=== PATIENT | male | born 1970 | race Caucasian/White ===

== ENCOUNTER 2017-12-04 10:46 | Outpatient (CLI) | payer OTHER | END 2017-12-04 10:47 | disposition critical access hospital (66) | LOC: EMS 10:46 | PROVIDERS: ATTEND Surgery | DX: R55 Syncope and collapse (principal) | CPT/HCPCS: A0425; A0429 ==

== ENCOUNTER 2017-12-04 11:01 | Observation (INO) | payer OTHER ==
[2017-12-04] MEDS ORDERED: SODIUM CHLORIDE 0.9% 1,000 ML IV ONE (11:42)
[2017-12-04 11:58] LABS: BASOPHILS # (AUTO) 0.1 10^3/uL (0.0-0.1); BASOPHILS % (AUTO) 0.8 %; EOSINOPHILS # (AUTO) 0.3 10^3/uL (0.0-0.7); EOSINOPHILS % (AUTO) 3.8 %; HGB - HEMOGLOBIN 14.9 g/dL (14.0-18.0); LYMPHOCYTES # (AUTO) 1.1 10^3/uL (1.5-3.5); LYMPHOCYTES % (AUTO) 13.1 %; MEAN CORPUSCULAR HEMOGLOBIN 31.6 pg (27.0-31.0); MEAN CORPUSCULAR HGB CONC 34.7 g/dL (32.0-36.0); MEAN CORPUSCULAR VOLUME 91.2 fL (80.0-94.0); MEAN PLATELET VOLUME 10.3 fL (7.4-11.4); MONOCYTES # (AUTO) 0.6 10^3/uL (0.0-1.0); MONOCYTES % (AUTO) 6.8 %; NEUTROPHILS # (AUTO) 6.3 10^3/uL (1.5-6.6); NEUTROPHILS % (AUTO) 75.5 %; PLT - PLATELET COUNT 136 10^3/uL (130-450); RED BLOOD COUNT 4.71 10^6/uL (4.70-6.10); RED CELL DISTRIBUTION WIDTH 12.9 % (12.0-15.0); WHITE BLOOD COUNT 8.3 x10^3/uL (4.8-10.8)
--- NOTE | 2017-12-04 12:03 | XRAY Report ---
Reason: cough Procedure Date: 12/04/2017 Accession Number: [id number] / [id number] Procedure: XR - Chest 1 View X-Ray CPT Code: 24934 FULL RESULT: EXAM: CHEST RADIOGRAPHY EXAM DATE: 12/04/2017 11:56 AM. CLINICAL HISTORY: Cough. Syncope. COMPARISON: None. TECHNIQUE: Upright AP view x2. FINDINGS: Lungs/Pleura: No focal opacities evident. No pleural effusion. No pneumothorax. Mediastinum: Within exam limitations, the cardiomediastinal contour is normal. Other: Bones are grossly unremarkable. IMPRESSION: Normal chest. RADIA
[2017-12-04 12:10] LABS: ALBUMIN 4.2 g/dL (3.2-5.5); ALBUMIN/GLOBULIN RATIO 1.2 (1.0-2.2); BILIRUBIN,TOTAL 0.8 mg/dL (0.2-1.0); CALCIUM 8.7 mg/dL (8.5-10.3); CREATININE 0.9 mg/dL (0.6-1.2); TOTAL PROTEIN 7.6 g/dL (6.7-8.2)
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
[2017-12-04] MEDS ORDERED: SODIUM CHLORIDE FLUSH 0.9% 10 ML SYRINGE IVP PRN (13:08)
[2017-12-04] MEDS ORDERED: ACETAMINOPHEN 325 MG TABLET PO PRN (13:08)
[2017-12-04] MEDS: NS W/20 MEQ KCL 1,000 ML IV SCH ×2 (14:24→23:03)
[2017-12-04] MEDS ORDERED: SODIUM CHLORIDE 0.9% 1,000 ML IV SCH (17:00)
[2017-12-04] MEDS: SODIUM CHLORIDE FLUSH 0.9% 10 ML SYRINGE IVP SCH (17:12)
--- NOTE | 2017-12-04 23:09 | HISTORY & PHYSICAL EXAMINATION ---
DATE OF SERVICE: 12/04/2017 Physician: Meseret Miller MD HISTORY OF PRESENT ILLNESS: This is a 47-year-old white male with a history of gout and hypertension. The patient had been on Torsemide and Spironolactone, presumably for treatment of ankle swelling plus hypertension. According to his , this was changed 1 year ago. The patient was also on Keppra in the past, and he thinks this may have been for foot pain, as he has no history of seizures, he states. The patient awoke this morning and went to the bathroom, where he also had a cigarette. This is his usual routine. He then came back to the bed, sat down and felt cold sweats, and then had syncope. The witnessed this, as she was in the bedroom. She called 911 and her neighbor friend and also went over to the patient. He had slumped out of the seated position onto the floor, but head was still elevated. She heard "gurgling." She thought he was not breathing, however. She gave him a precordial thump because she tried to simply do something, not because of trying CPR. With this, he awoke, and they both noticed that he had both urinary incontinence and was incontinent of stool. He also vomited onto his chest. He tried to get up to clean himself, felt irritated, since the told him to stay there because at this point she was talking to the stemming machine operator. He sat there and waited, and EMS arrived. His blood pressure on the scene is not known, but the thinks that the chief of harbor patrol said that it was normal, including his pulse. He was taken by ambulance to the emergency room and is now being placed in Observation for a syncope workup. The patient had syncope one other time, which was when he was young, after fasting, and he thought that episode occurred because of being hungry and also dehydrated. He denies any chest pain, palpitations, NAJERA, any further leg edema. He is compliant with his medications. ALLERGIES HE STATES HIS ONLY ALLERGY IS LISINOPRIL, BUT THE CHART INDICATES HE ALSO IS ALLERGIC TO: 1. CLOPIDOGREL. 2. DONEPEZIL. 3. GALANTAMINE. 4. MEMANTINE. (I suspect this is a mistake and should be on another patient's allergy list). MEDICATIONS 1. Allopurinol 100 mg daily. 2. Amlodipine 5 mg daily. 3. Atenolol 50 mg daily. 4. Zantac 300 mg daily p.r.n. indigestion. SOCIAL HISTORY: He is a smoker of 1 pack a day. He just recently restarted smoking a month ago because of "stress." He had quit smoking for 5 years. He drinks no alcohol. He uses no illicit drugs. FAMILY HISTORY: Strongly positive for early heart disease in his father and all male members of the family. His father had coronary artery disease and at the age of 51. REVIEW OF SYSTEMS: The patient works as a emergency response officer. He has not been at work for 4 days. The family moved into their trailer 1 month ago. The patient was cleaning out "black mold 1 week ago", in that trailer. His has been sick with pneumonia. She needed 2 courses of antibiotics. She got sick before the black mold was being removed 1 week ago. The patient also has an upper respiratory infection but only nasal congestion and head cold. He denies any sputum production but has a dry cough. There has been no recent fever or chills, diarrhea, no seizure history, and there was no tonic-clonic movement with this episode according to the . PHYSICAL EXAMINATION GENERAL: Middle-aged white male, who is in no distress. VITAL SIGNS: Blood pressure 121/87, heart rate 64 in sinus rhythm, afebrile, room air saturation 99%. HEENT: Unremarkable. NECK: Without JVD or carotid bruits. CHEST: Clear. HEART: Sounds normal. No murmur. ABDOMEN: Soft, nontender. No organomegaly. EXTREMITIES: No clubbing, cyanosis, edema. NEUROLOGIC: Intact. LABORATORY STUDIES: Normal electrolytes. Normal BUN and creatinine. Normal liver tests. Troponins are not detectable x2. CBC is unremarkable. No urinalysis or INR was done. IMAGING Chest x-ray: No active disease. ELECTROCARDIOGRAM: Normal sinus rhythm, LVH voltage, flat T wave in aVF, biphasically inverted T wave in lead III. ECHOCARDIOGRAM: Preliminary report shows normal LV size and normal EF and essentially unremarkable Echo. IMPRESSION/DIAGNOSES 1. Syncope. 2. Abnormal EKG in a patient with risk factors of coronary artery disease including hypertension, early family history of heart disease, male gender, and unknown cholesterol status. 3. History of hypertension. 4. History of gout. 5. Family history of early coronary artery disease. PLAN 1. Place the patient in telemetry. Cycle troponins. Check magnesium. Check TSH to rule out hyper- or hypothyroidism as a cause of potential cardiac arrhythmia. Get final report on the Echo. Proceed to a stress test with nuclear imaging because of the abnormal EKG. Begin gentle hydration. Check orthostatic vital signs. 2. Deep venous thrombosis prophylaxis: SCDs. CODE STATUS: FULL CODE. ATTESTATION: The patient is expected to be discharged or transferred to another facility within 96 hours: Yes. TD: 12/04/2017 19:09 PHI
[2017-12-05] MEDS: SODIUM CHLORIDE FLUSH 0.9% 10 ML SYRINGE IVP SCH ×2 (02:37→13:33)
[2017-12-05] MEDS: NS W/20 MEQ KCL 1,000 ML IV SCH (08:24)
[2017-12-05] MEDS ORDERED: POLYETHYLENE GLYCOL 3350 17 GM PACKET PO SCH (09:00)
[2017-12-05] MEDS ORDERED: FAMOTIDINE 20 MG TABLET PO SCH (09:00)
[2017-12-05] MEDS ORDERED: ALLOPURINOL 100 MG TABLET PO SCH (09:00)
[2017-12-05] MEDS ORDERED: AMLODIPINE BESYLATE 5 MG PO ONE (13:00)
[2017-12-05] MEDS ORDERED: ATENOLOL 50 MG PO ONE (13:00)
--- NOTE | 2017-12-05 13:33 | Nuclear Medicine Report ---
Reason: Abn EKG, syncope Procedure Date: 12/05/2017 Accession Number: [id number] / [id number] Procedure: NM - Myocardial Perfusion STR/RST CPT Code: FULL RESULT: EXAM: SINGLE-ISOTOPE EXERCISE STRESS TEST. SINGLE-ISOTOPE AND ONE-DAY REST/STRESS MYOCARDIAL PERFUSION SCANS WITH TOMOGRAPHIC IMAGING, QUANTITATIVE ANALYSIS, WALL MOTION ANALYSIS AND CALCULATION OF EJECTION FRACTION. EXAM DATE: 12/05/2017 01:07 PM. CLINICAL HISTORY: Abn EKG, syncope. COMPARISON: None available. TECHNIQUE: A rest myocardial perfusion scan was done with tomography after the intravenous administration of 9.1 mCi Tc-99m sestamibi. After an appropriate delay, a treadmill exercise stress was performed according to department protocol. The patient exercised for 7 minutes and 24 seconds. The maximum heart rate was 158 bpm, which was 91% of the maximum predicted heart rate of 173 bpm. At approximately peak heart rate, 43 mCi of Tc-99m sestamibi was injected for stress myocardial perfusion scan. Motion correction was applied when appropriate. Gated tomographic images were obtained for wall motion analysis and computation of left ventricular ejection fraction. FINDINGS: Stress perfusion images demonstrate no significant convincing fixed or reversible perfusion defects. Computer analysis: Summed stress score 4 Summed rest score 4 Summed difference score 0 Wall motion analysis demonstrates no focal wall motion abnormality The left ventricular end-diastolic volume is 75 cc. The left ventricular end-systolic volume is 25 cc. The left ventricular ejection fraction is calculated to be 67%. IMPRESSION: 1. No scintigraphic findings to indicate myocardial ischemia. Negative for infarct. 2. Normal left ventricular ejection fraction of 67%. 3. Normal segmental and global wall motion. 4. Normal left ventricular cavity size, no change with stress. 5. Based on computer analysis, mildly abnormal exam with no ischemia. RADIA
[2017-12-05 13:41] VITALS: BP 141/74
--- NOTE | 2017-12-05 13:46 | Discharge Plan ---
Discharge Plan Disposition: 01 Home, Self Care Condition: Stable Diet: Low Sodium Activity Restrictions: Activity as Tolerated Additional Instructions or Follow Up instructions: Resume all your pre-hospital medications. Stay well hydrated, since the only explanation we could find for your fainting spell, was dehydration. See your PCP in a week for follow-up and for possible further evaluation of fainting. You may need a 24 hr Holter monitor or a Tilt Table Test or a Cardiology referral. If you have new or worsening symptoms, return to the ER. No Smoking: If you smoke, Please STOP! Call for help. Follow-up with: Williams Velez MD [Primary Care Provider] -
--- NOTE | 2017-12-05 16:00 | CARDIAC PROCEDURE NOTE ---
DATE OF SERVICE: 12/05/2017 Physician: Meseret Miller MD INDICATIONS: Syncope, abnormal EKG, family history of early heart disease. CORONARY RISK FACTORS: Hypertension, male gender, family history of early heart disease, overweight, unknown cholesterol status, smoker. After signing informed consent, the patient performed a [place]-protocol treadmill stress test with rest and stress nuclear imaging. The patient exercised for 7 minutes and 23 seconds. The patient achieved a peak heart rate of 158 (91% of predicted maximum heart rate for age). He achieved 9.2 METS. He had moderate shortness of breath at the peak stage, there was no chest pain. Resting heart rate 62. Peak heart rate 158 (91% PMHR). Resting blood pressure 144/80. Peak blood pressure 190/90. RESTING EKG: Normal sinus rhythm, LVH voltage, biphasic/flat T waves in leads III and aVF. EKG AT [place]: No new ST or T-wave changes. IMPRESSION 1. Fair exercise tolerance. 2. Abnormal resting EKG. 3. No ischemic EKG changes at an adequate level of stress. 4. Nuclear images reported separately. TD: 12/05/2017 15:45 MTDAndre
--- NOTE | 2017-12-06 05:17 | DISCHARGE SUMMARY ---
Physician: Meseret Miller MD DATE OF ADMISSION: 12/04/2017 DATE OF DISCHARGE: 12/05/2017 This is a 47-year-old, white male with a history of gout and hypertension. In the past, he was on spironolactone and torsemide for blood pressure control and ankle swelling, as well as Keppra for unknown reasons. Over the past year, these have been stopped and he has been on other blood pressure medications, as well as allopurinol for his gout. The patient and family recently moved from a house into a trailer. He was cleaning out black mold, using chlorine spray. His was suffering from pneumonia during this time, and the patient developed an head cold without a cough or sputum. The patient awoke, on the day of presentation, went to the bathroom and then returned back to bed and, after sitting down, he developed sudden cold sweats and then had syncope. The saw this, called 911, approached him and gave him a precordial thump. The patient was incontinent of urine and stool, and also started to vomit. The paramedics arrived and he was brought here. It is unknown what his vital signs were at the scene. The patient was placed in Observation for evaluation of syncope. HOSPITAL COURSE AND DISCHARGE DIAGNOSES 1. Syncope. The patient had mild orthostasis on exam with a drop in systolic blood pressure of 18 mmHg. He was started on IV fluids. There were no further episodes of syncope and there was no dizziness. He had troponins cycled x3 that were all undetectable. There were no significant dysrhythmias on telemetry. He was felt to have probable dehydration as the cause of the syncope. He may need further Cardiology evaluation as an outpatient. 2. Abnormal electrocardiogram. The patient's baseline EKG showed normal sinus rhythm, LVH voltage and T-wave abnormal in leads III and aVF. Because of this abnormality plus a very strong family history of coronary artery disease at early ages, he underwent a stress test after the troponins returned negative. He exercised on a [place] protocol treadmill, achieved 91% predicted heart rate, 9 METS, had moderate shortness of breath. No new EKG changes. The nuclear portion of the scan showed no evidence of ischemia, LVEF of 67%. 3. Hypertension. The patient was continued on his Amlodipine and Atenolol for blood pressure management while here. 4. Tobacco use. Patient had previously stopped smoking for 5 years. He restarted smoking just 1 month previously because of "the stress of moving into the new place." He did not request a nicotine patch while here and planned to stop smoking again at discharge. 5. Family history of early coronary artery disease. Patient reported that his father at age 51 of coronary artery disease, as well as his grandfather, several uncles and many other men in the family. It was for this reason that he underwent the coronary evaluation while here. The patient should have good risk factor management. He should be advised to take aspirin daily for CVD prophylaxis. 6. History of gout. The patient was kept on his allopurinol while here. There were no active symptoms of this. LABS AND IMAGING: Reviewed and summarized above. CONDITION AT DISCHARGE: Stable. PHYSICAL EXAMINATION VITAL SIGNS: Blood pressure 150/70, heart rate 66. HEENT: Unremarkable. NECK: Without JVD or carotid bruits. CHEST: Clear. HEART: Sounds normal. No murmur. ABDOMEN: Soft. Positive bowel sounds. EXTREMITIES: No edema. NEUROLOGIC: Intact. ALLERGIES: LISINOPRIL. DISCHARGE MEDICATIONS 1. Allopurinol 100 mg daily. 2. Amlodipine 5 mg daily. 3. Atenolol 50 mg daily. 4. Ranitidine 300 mg daily. FOLLOWUP: He is advised to see his PCP in 1 week. He may need referral to a Scrip Clerk for further evaluation of the syncope, including a possible Holter monitor and tilt table test. CODE STATUS: FULL CODE. TIME REQUIRED TO COMPLETE THE ENTIRE DISCHARGE, CHART REVIEW, PATIENT EDUCATION AND DICTATION: 30 minutes. cc: Williams Velez MD TD: 12/05/2017 19:56 MTDD
== END 2017-12-05 14:20 | disposition home or self-care (01) ==
LOC: ED 11:01 → MS2 13:08 → OBS 19:59
PROVIDERS: ADMIT Internal Medicine; ATTEND Internal Medicine
DX: R55 Syncope and collapse (principal); I10 Essential (primary) hypertension; M10.9 Gout, unspecified; F17.210 Nicotine dependence, cigarettes, uncomplicated; R94.31 Abnormal electrocardiogram [ECG] [EKG]; Z82.49 Family history of ischemic heart disease and other diseases of the circulatory system
CPT/HCPCS: 36415; 71045; 78452; 80053; 83690; 84484; 85025; 93005; 93017; 93306; 96360; 96361; 99284; A9270; A9500; G0378

== ENCOUNTER 2018-06-22 10:49 | Emergency (ER) | payer OTHER ==
[2018-06-22 11:16] VITALS: BP 135/92
[2018-06-22] MEDS ORDERED: AMOXICILLIN 250 MG CAPSULE PO STA (11:35)
--- NOTE | 2018-06-22 11:37 | ED Physician Documentation ---
PD HPI URI - Stated complaint Stated Complaint: COUGH/FEVER - Chief complaint Chief Complaint: Resp - History obtained from History obtained from: Patient - History of Present Illness Timing - onset: How many weeks ago (2) Timing details: Still present Associated symptoms: Fever, Ear pain, Dry cough Contributing factors: Sick contact () Similar symptoms before: Has not had sx before - Additional information Additional information: The patient is a 47-year-old male who presents with cough of about 2 weeks duration. It is nonproductive. He reports associated low-grade fever, sore throat, and left earache. He denies headache, nausea or vomiting. He denies history of similar symptoms in the past. He has a history of cigarette smoking. Review of Systems Constitutional: reports: Fever Eyes: denies: Irritation Ears: reports: Ear pain (left ear) Nose: reports: Congestion Throat: reports: Sore throat Cardiac: denies: Chest pain / pressure Respiratory: reports: Cough. denies: Dyspnea GI: denies: Abdominal Pain, Nausea, Vomiting : denies: Dysuria Skin: denies: Rash Musculoskeletal: denies: Neck pain, Extremity pain Neurologic: denies: Headache PD PAST MEDICAL HISTORY - Past Medical History Past Medical History: Yes Cardiovascular: Hypertension Respiratory: Asthma Neuro: None HEENT: None Psych: None Musculoskeletal: Gout Derm: Other - Past Surgical History Past Surgical History: No - Present Medications Home Medications: Ambulatory Orders Medication Instructions Recorded Confirmed Allopurinol 100 mg PO DAILY 12/04/17 12/04/17 Amlodipine Besylate 5 mg PO DAILY 12/04/17 12/04/17 Atenolol 50 mg PO DAILY 12/04/17 12/04/17 raNITIdine HCl [Ranitidine HCl] 300 mg PO DAILY PRN 12/04/17 12/04/17 Amoxicillin 500 mg PO TID #30 capsule 06/22/18 Benzonatate [Tessalon Perle] 100 - 200 mg PO TID PRN #30 capsule 06/22/18 - Allergies Allergies/Adverse Reactions: Allergies Allergy/AdvReac Type Severity Reaction Status Date / Time lisinopril AdvReac Severe Hives, Verified 06/22/18 11:13 facial swelling - Social History Does the pt smoke?: Yes Smoking Status: Current every day smoker Does the pt drink ETOH?: No Does the pt have substance abuse?: No PD ED PE NORMAL - Vitals Vital signs reviewed: Yes (borderline hypertension) - General General: Alert and oriented X 3, Well developed/nourished - HEENT HEENT: Atraumatic, EOMI, Pharynx benign, Other (Left tympanic membrane is markedly erythematous and bulging with loss of landmarks. Right tympanic membrane is clear.) - Neck Neck: Supple, no meningeal sign, Other (Mildly enlarged anterior cervical nodes.) - Cardiac Cardiac: RRR - Respiratory Respiratory: No respiratory distress, Clear bilaterally - Abdomen Abdomen: Soft, Non tender - Back Back: No CVA TTP - Derm Derm: No rash - Extremities Extremities: No edema, No calf tenderness / cord - Neuro Neuro: Alert and oriented X 3, No motor deficit, Normal speech Results - Vitals Vitals: Vital Signs - 24 hr 06/22/18 11:14 Temperature 37.1 C Heart Rate 75 Respiratory 18 Rate Blood Pressure 135/92 H O2 Saturation 100 Oxygen O2 Source Room air PD MEDICAL DECISION MAKING - ED course Complexity details: considered differential, d/w patient, d/w family ED course: The patient's presentation is most consistent with upper respiratory infection, and acute left otitis media. I do not think a chest x-ray would be of clinical benefit. His presentation does not suggest pneumonia. Treatment in the emergency department included administration of amoxicillin 500 mg orally. He is being discharged with prescriptions for amoxicillin and for Tessalon. I discussed with him the expected course of illness, antibiotic treatment and outpatient follow-up, as well as potentially worrisome signs or symptoms that should prompt reevaluation in the emergency department. Departure - Departure Disposition: 01 Home, Self Care Clinical Impression: Acute left otitis media, Viral URI with cough Condition: Stable Instructions: ED Otitis Media Acute Adult, ED URI Viral Follow-Up: Williams Velez MD [Primary Care Provider] - Prescriptions: Amoxicillin 500 mg PO TID #30 capsule Benzonatate [Tessalon Perle] 100 - 200 mg PO TID PRN #30 capsule PRN Reason: Cough Forms: Activity restrictions
== END 2018-06-22 13:23 | disposition home or self-care (01) ==
LOC: ED 10:49
DX: H66.92 Otitis media, unspecified, left ear (principal); J06.9 Acute upper respiratory infection, unspecified; B97.89 Other viral agents as the cause of diseases classified elsewhere; I10 Essential (primary) hypertension; F17.200 Nicotine dependence, unspecified, uncomplicated
CPT/HCPCS: 99283; A9270